=== PATIENT | female | born 1935 | race Caucasian/White ===

== ENCOUNTER 2022-01-02 08:45 | Emergency (ER) | payer MEDICARE ==
[2022-01-02 09:25] VITALS: RESP 14
[2022-01-02] MEDS ORDERED: SILVER NITRATE APPLICATOR 1 EACH STICK..EA. TOPICAL STA (10:17)
--- NOTE | 2022-01-02 10:19 | ED ---
General Adult HPI - General Chief complaint: ENT Stated complaint: Nose bleed Time Seen by Provider: 01/02/22 09:14 Source: patient, RN notes reviewed Mode of arrival: wheelchair Limitations: no limitations - History of Present Illness Initial comments: Patient is a pleasant 86-year-old female presenting to the emergency Department with epistaxis. Onset was yesterday. Patient was able to get a stopped and started again this morning. At this time seems to stopped again. Patient has no other complaints. Patient does have history of frequent nosebleeds, more when she was younger. Patient only takes aspirin occasionally, none recently. No other area of bleeding. No pain. Patient states her blood pressure frequently runs high when she sees a doctor secondary to white coat syndrome. - Related Data Home Medications Medication Instructions Recorded Confirmed Cholecalciferol [Vitamin D3 (25 25 mcg PO DAILY 01/02/22 01/02/22 Mcg = 1000 Iu)] Multivitamins, Thera [Multivitamin 1 tab PO DAILY 01/02/22 01/02/22 (formulary)] Turmeric Root Extract [Turmeric] 500 mg PO DAILY 01/02/22 01/02/22 Vits A,C,E/Lutein/Minerals 1 tab PO DAILY 01/02/22 01/02/22 [Ocuvite with Lutein Tablet] Previous Rx's Medication Instructions Recorded amLODIPine [Norvasc] 5 mg PO DAILY #7 tab 01/02/22 Allergies Allergy/AdvReac Type Severity Reaction Status Date / Time No Known Allergies Allergy Verified 01/02/22 09:54 Review of Systems ROS Statement: Those systems with pertinent positive or pertinent negative responses have been documented in the HPI. ROS Other: All systems not noted in ROS Statement are negative. Constitutional: Denies: fever Eyes: Denies: eye pain ENT: Reports: epistaxis. Denies: ear pain Respiratory: Denies: cough Cardiovascular: Denies: chest pain Endocrine: Denies: fatigue Gastrointestinal: Denies: abdominal pain Genitourinary: Denies: dysuria Musculoskeletal: Denies: back pain Skin: Denies: rash Neurological: Denies: weakness Past Medical History Past Medical History: No Reported History History of Any Multi-Drug Resistant Organisms: None Reported Past Surgical History: Cholecystectomy, Hysterectomy Past Psychological History: No Psychological Hx Reported Smoking Status: Never smoker Past Alcohol Use History: Rare Past Drug Use History: None Reported General Exam Limitations: no limitations General appearance: alert, in no apparent distress Head exam: Present: normocephalic Eye exam: Present: normal appearance, PERRL ENT exam: Present: normal oropharynx, other (Right anterior nares with fresh clot) Neck exam: Present: normal inspection Respiratory exam: Present: normal lung sounds bilaterally Cardiovascular Exam: Present: regular rate, normal rhythm Expanded Peripheral pulses: 2+: Radial (R), Radial (L) GI/Abdominal exam: Present: soft. Absent: tenderness Extremities exam: Present: normal inspection. Absent: pedal edema, calf tenderness Neurological exam: Present: alert. Absent: motor sensory deficit Psychiatric exam: Present: normal affect, normal mood Skin exam: Present: normal color Course Vital Signs 01/02/22 01/02/22 01/02/22 08:51 09:17 11:27 Temperature 97.8 F 97 F L 97.3 F L Pulse Rate 88 78 80 Respiratory 18 14 14 Rate Blood Pressure 240/111 247/104 223/89 O2 Sat by Pulse 96 97 94 L Oximetry 01/02/22 01/02/22 12:34 13:22 Temperature 97.5 F L Pulse Rate 93 87 Respiratory 14 Rate Blood Pressure 216/97 195/89 O2 Sat by Pulse 95 Oximetry - Reevaluation(s) Reevaluation #1: 01/02/22 10:18 Patient recommended further evaluation and control of blood pressure EKG Findings - EKG Comments: EKG Findings:: No sinus rhythm with rate of 86. NE 144. QRS 132. QT 400. QTc 470. Right axis. Right bundle branch block. Borderline inferior Q waves. Procedures - Procedures Initial comment: Verbal informed consent given. Epistaxis: Area of fresh bleeding right nares cauterized with silver nitrate. No complications. Medical Decision Making - Medical Decision Making Patient reevaluated. Blood pressure 189/95. Patient was given small dose of Norvasc prior to discharge and recommended close follow-up with repeat blood pressure monitoring. - Lab Data Result diagrams: 01/02/22 10:56 01/02/22 10:56 Lab Results 01/02/22 01/02/22 Range/Units 10:56 10:56 WBC 10.8 H (3.8-10.6) k/uL RBC 5.37 (3.80-5.40) m/uL Hgb 14.2 (11.4-16.0) gm/dL Hct 44.1 (34.0-46.0) % MCV 82.1 (80.0-100.0) fL MCH 26.4 (25.0-35.0) pg MCHC 32.2 (31.0-37.0) g/dL RDW 15.2 (11.5-15.5) % Plt Count 211 (150-450) k/uL MPV 9.4 Neutrophils % 84 % Lymphocytes % 9 % Monocytes % 3 % Eosinophils % 1 % Basophils % 0 % Neutrophils # 9.0 H (1.3-7.7) k/uL Lymphocytes # 1.0 (1.0-4.8) k/uL Monocytes # 0.4 (0-1.0) k/uL Eosinophils # 0.2 (0-0.7) k/uL Basophils # 0.0 (0-0.2) k/uL Hypochromasia Slight Sodium 142 (137-145) mmol/L Potassium 4.2 (3.5-5.1) mmol/L Chloride 109 H (98-107) mmol/L Carbon Dioxide 26 (22-30) mmol/L Anion Gap 7 mmol/L BUN 17 (7-17) mg/dL Creatinine 0.55 (0.52-1.04) mg/dL Est GFR (CKD-EPI)AfAm >90 (>60 ml/min/1.73 sqM) Est GFR (CKD-EPI)NonAf 85 (>60 ml/min/1.73 sqM) Glucose 110 H (74-99) mg/dL Calcium 9.3 (8.4-10.2) mg/dL Total Bilirubin 0.5 (0.2-1.3) mg/dL AST 23 (14-36) U/L ALT 14 (4-34) U/L Alkaline Phosphatase 110 (38-126) U/L Total Protein 7.5 (6.3-8.2) g/dL Albumin 4.1 (3.5-5.0) g/dL - Radiology Data Radiology results: image reviewed (Chest x-ray shows COPD changes. Some atelectasis.) Disposition Clinical Impression: Epistaxis, Hypertension Disposition: HOME SELF-CARE Condition: Stable Instructions (If sedation given, give patient instructions): Nosebleed (ED), Hypertension (ED) Additional Instructions: Prescription sent to pharmacy for blood pressure medication. Please do follow- up with primary care physician in the next couple days for recheck. Return for bleeding, uncontrolled blood pressure, worsening or changing symptoms or other concerns. If nasal bleeding recurs, apply nasal clamp for 10 minutes. Prescriptions: amLODIPine [Norvasc] 5 mg PO DAILY #7 tab Is patient prescribed a controlled substance at d/c from ED?: No Referrals: Ray Bolden MD [STAFF PHYSICIAN] - 1-2 days Time of Disposition: 14:23
[2022-01-02] MEDS ORDERED: hydrALAZINE HCL 20 MG/ML 1 ML VIAL IVP STA ×2 (10:52→12:41)
[2022-01-02 11:06] LABS: Basophils % (A) 0 %; Eosinophils # (A) 0.2 k/uL (0-0.7); Eosinophils % (A) 1 %; HCT 44.1 % (34.0-46.0); HGB 14.2 gm/dL (11.4-16.0); Hypochromasia Slight; Lymphocytes % (A) 9 %; MCH 26.4 pg (25.0-35.0); MCHC 32.2 g/dL (31.0-37.0); MCV 82.1 fL (80.0-100.0); Mean Platelet Volume 9.4; Monocytes # (A) 0.4 k/uL (0-1.0); Monocytes % (A) 3 %; Neutrophils % (A) 84 %; Platelet Count 211 k/uL (150-450); RBC 5.37 m/uL (3.80-5.40); RDW 15.2 % (11.5-15.5); WBC 10.8 k/uL (3.8-10.6)
[2022-01-02 11:18] LABS: ALT 14 U/L (4-34); AST 23 U/L (14-36); African American GFR (CKD) >90 (>60 ml/min/1.73 sqM); Albumin 4.1 g/dL (3.5-5.0); Alkaline Phosphatase 110 U/L (38-126); Anion Gap 7 mmol/L; Blood Urea Nitrogen 17 mg/dL (7-17); Calcium 9.3 mg/dL (8.4-10.2); Carbon Dioxide 26 mmol/L (22-30); Chloride 109 mmol/L (98-107); Glucose 110 mg/dL (74-99); Non-African American GFR(CKD) 85 (>60 ml/min/1.73 sqM); Potassium 4.2 mmol/L (3.5-5.1); Sodium 142 mmol/L (137-145); Total Bilirubin 0.5 mg/dL (0.2-1.3); Total Protein 7.5 g/dL (6.3-8.2)
[2022-01-02 12:38] VITALS: TEMP 97.5
--- NOTE | 2022-01-02 12:39 | XR ---
EXAMINATION TYPE: XR chest 2V DATE OF EXAM: 01/02/2022 COMPARISON: 09/28/2017 HISTORY: 86-year-old female with weakness TECHNIQUE: PA and lateral views FINDINGS: Heart limits of normal in size. Atherosclerotic calcifications throughout the thoracic aorta, greates t at the aortic arch. Hyperinflation. Some stringy areas of atelectasis mid and lower lungs. No conso lidation or pleural effusion. IMPRESSION: COPD. Some strandy areas of atelectasis. No acute process seen.
[2022-01-02] MEDS ORDERED: amLODIPine 5 MG TAB PO STA (14:22)
[2022-01-02 14:49] VITALS: BP 139/55; PULSE 76
== END 2022-01-02 15:18 | disposition home or self-care (01) ==
LOC: EC 08:45
DX: R04.0 Epistaxis (principal); I10 Essential (primary) hypertension
CPT/HCPCS: 93005; 80053; 85025; 71046; 30901; 99284; 96374; 96376; J0360

== ENCOUNTER 2024-03-19 19:52 | Emergency (ER) | payer MEDICARE ==
[2024-03-19 20:48] VITALS: RESP 16
[2024-03-19] MEDS: SODIUM CHLORIDE 0.9% 1,000 ML IV STA (22:43)
[2024-03-19 22:58] LABS: Basophils # (A) 0.1 k/uL (0-0.2); Basophils % (A) 0 %; Eosinophils # (A) 0.2 k/uL (0-0.7); Eosinophils % (A) 1 %; HCT 38.5 % (34.0-46.0); HGB 12.1 gm/dL (11.4-16.0); Lymphocytes # (A) 1.1 k/uL (1.0-4.8); Lymphocytes % (A) 5 %; MCH 26.3 pg (25.0-35.0); MCHC 31.3 g/dL (31.0-37.0); Mean Platelet Volume 9.1; Monocytes # (A) 0.9 k/uL (0-1.0); Monocytes % (A) 4 %; Neutrophils # (A) 20.2 k/uL (1.3-7.7); Neutrophils % (A) 89 %; Platelet Count 228 k/uL (150-450); RBC 4.58 m/uL (3.80-5.40); RDW 14.5 % (11.5-15.5); WBC 22.8 k/uL (3.8-10.6)
--- NOTE | 2024-03-19 22:58 | XR ---
EXAM: XR chest 1V portable CLINICAL INDICATION:Female, 88 years old with history of hip fx; [facility] COMPARISON: None. TECHNIQUE: Chest single view. FINDINGS: Large ovoid relatively opaque structure, likely breast implant projecting over the left lung somewhat limits evaluation. There is an edge projected over the right upper lung with lung markings seen lian pheral to this. Lines/tubes/devices: None. Cardiomediastinum: Cardiac silhouette appears moderately enlarged. Tortuous and moderately calcified aorta. Vasculature: No increased pulmonary vasculature. Lungs/pleura: Diffuse interstitial coarsening and senescent changes. No acute superimposed airspace disease, sizabl e effusion, or evidence of pneumothorax. Bones/soft tissues: Bony thorax appears grossly intact as seen, with moderate degenerative changes of the spine and shoul ders.. Regional soft tissues appear unremarkable. IMPRESSION: Moderate cardiomegaly and chronic pulmonary changes. No acute cardiopulmonary findings.
[2024-03-19 23:01] LABS: Appearance,Urine Clear (Clear); Bilirubin,Urine Negative (Negative); Blood,Urine Negative (Negative); Color,Urine Colorless; Glucose,Urine (UA) Negative (Negative); Ketones,Urine Negative (Negative); Leukocyte Esterase,Urine Negative (Negative); Nitrite,Urine Negative (Negative); Protein,Urine Trace (Negative); Specific Gravity,Urine 1.016 (1.001-1.035); Urobilinogen,Urine <2.0 mg/dL (<2.0)
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
[2024-03-19] MEDS: MORPHINE SULFATE 4 MG/ML SYRINGE IV STA (23:04)
[2024-03-19] MEDS: LABETALOL 5 MG/ML VIAL MDV IVP STA (23:06)
[2024-03-19 23:07] LABS: ALT 18 U/L (4-34); AST 27 U/L (14-36); African American GFR (CKD) >90 (>60 ml/min/1.73 sqM); Albumin 3.9 g/dL (3.5-5.0); Alkaline Phosphatase 141 U/L (38-126); Anion Gap 6 mmol/L; Blood Urea Nitrogen 22 mg/dL (7-17); Calcium 9.3 mg/dL (8.4-10.2); Carbon Dioxide 24 mmol/L (22-30); Chloride 107 mmol/L (98-107); Glucose 125 mg/dL (74-99); Non-African American GFR(CKD) 87 (>60 ml/min/1.73 sqM); Potassium 4.4 mmol/L (3.5-5.1); Sodium 137 mmol/L (137-145); Total Bilirubin 0.4 mg/dL (0.2-1.3)
--- NOTE | 2024-03-19 23:07 | XR ---
EXAMINATION TYPE: XR Hip Complete LT DATE OF EXAM: 03/19/2024 9:00 PM CLINICAL INDICATION:Female, 88 years old with history of fall/pain; [facility] COMPARISON: X-rays 01/16/2023 TECHNIQUE: FINDINGS: Frontal and lateral views of the left hip. Bones appears somewhat demineralized. Left hip arthroplast y redemonstrated, appears intact and normally positioned. There is an acute oblique fracture of the f emur which extends through the proximal femoral shaft but there may be some involvement of the greate r trochanter. The major proximal bony fragment appears displaced slightly medially in relation to the distal shaft fragment, by about 3 mm. There is also some perihardware lucency along the medial aspec t of the intramedullary stem, likely reflecting loosening. Moderate arterial vascular calcifications are seen. No gross acute soft tissue abnormality. IMPRESSION: * Left hip arthroplasty redemonstrated, appears intact and normally positioned. * Acute oblique perihardware fracture of the proximal femur, which extends through the proximal femo ral shaft but there may be some involvement of the greater trochanter. * Major proximal bony fragment is displaced slightly medially and there is some perihardware lucency along the medial aspect of the intramedullary stem, likely reflecting loosening.
[2024-03-19 23:08] LABS: Partial Thromboplastin Time 26.2 sec (22.0-30.0); Prothrombin Time 10.9 sec (10.0-12.5)
--- NOTE | 2024-03-19 23:14 | XR ---
EXAMINATION TYPE: XR shoulder complete LT DATE OF EXAM: 03/19/2024 9:00 PM CLINICAL INDICATION:Female, 88 years old with history of fall/pain; [facility] COMPARISON: None TECHNIQUE: XR shoulder complete LT; shoulder was examined in AP, internally rotated and scapular Y p rojections. FINDINGS: Moderate hypertrophic degenerative change of the acromioclavicular joint with preserved alignment. Th ere appears to be a small subacromial spur. Mild/moderate degenerative change of the glenohumeral adelina nt involving the proximal humerus without evidence of dislocation. There is an acute proximal humerus fracture involving the greater tuberosity which appears displaced slightly superiorly and laterally. Mild soft tissue swelling about the shoulder. No radiopaque foreign body is seen. IMPRESSION: 1. Acute proximal left humerus fracture involving the greater tuberosity, which appears displaced sl ightly. 2. Degenerative changes of the AC and GH joints. 3. No dislocation.
[2024-03-20 01:01] VITALS: BP 205/98; PULSE 71; TEMP 97.8
== END 2024-03-20 01:35 | disposition other institution (70) ==
LOC: EC 19:52
DX: S72.002A Fracture of unspecified part of neck of left femur, initial encounter for closed fracture (principal); S42.252A Displaced fracture of greater tuberosity of left humerus, initial encounter for closed fracture; Z87.891 Personal history of nicotine dependence; W51.XXXA Accidental striking against or bumped into by another person, initial encounter
CPT/HCPCS: 36415; 80053; 85025; 85610; 85730; 81003; 73030; 73502; 71045; 99285; 96374; 96375; 96361 ×3; J2270; J1920

== ENCOUNTER 2025-03-26 10:22 | Emergency (ER) | payer MEDICARE ==
[2025-03-26 10:31] VITALS: TEMP 97.9
--- NOTE | 2025-03-26 10:52 | ED ---
General Adult HPI - General Chief complaint: Dizziness Stated complaint: Lightheadedness Time Seen by Provider: 03/26/25 10:25 Source: patient, RN notes reviewed Mode of arrival: EMS Limitations: no limitations - History of Present Illness Initial comments: Patient is an 89-year-old female presents emergency department with concern with lightheadedness. Onset of symptoms was prior to arrival. Patient states symptoms have resolved and is back to normal. Unclear if history of similar symptoms previously. Patient has a very hard time describing her symptoms however agree that she did feel lightheaded. No spinning sensation. No pain. No chest pain. No dyspnea. No weakness. No confusion. Patient states that is normal for her not to know what year it is - Related Data Home Medications Medication Instructions Recorded Confirmed Multivitamins, Thera [Multivitamin 1 tab PO DAILY 01/02/22 03/26/25 (formulary)] Vits A,C,E/Lutein/Minerals 1 tab PO DAILY 01/02/22 03/26/25 [Ocuvite with Lutein Tablet] Losartan [Cozaar] 50 mg PO DAILY 03/26/25 03/26/25 amLODIPine [Norvasc] 5 mg PO DAILY 03/26/25 03/26/25 carvediloL [Coreg*] 12.5 mg PO BID 03/26/25 03/26/25 Previous Rx's Medication Instructions Recorded Apixaban [Eliquis] 2.5 mg PO BID tab 12/27/22 Allergies Allergy/AdvReac Type Severity Reaction Status Date / Time No Known Allergies Allergy Verified 03/26/25 12:43 Review of Systems ROS Statement: Those systems with pertinent positive or pertinent negative responses have been documented in the HPI. ROS Other: All systems not noted in ROS Statement are negative. Constitutional: Denies: fever Eyes: Denies: eye pain ENT: Denies: ear pain Respiratory: Denies: cough, dyspnea Cardiovascular: Denies: chest pain Endocrine: Denies: fatigue Gastrointestinal: Denies: abdominal pain Neurological: Denies: headache, weakness, confusion Past Medical History Past Medical History: Hypertension History of Any Multi-Drug Resistant Organisms: None Reported Past Surgical History: Cholecystectomy, Hysterectomy Additional Past Surgical History / Comment(s): (R)hip replacement 1974 Past Psychological History: No Psychological Hx Reported Smoking Status: Former smoker Past Alcohol Use History: Rare Past Drug Use History: None Reported General Exam Limitations: no limitations General appearance: alert, in no apparent distress Head exam: Present: atraumatic, normocephalic Eye exam: Present: normal appearance, PERRL, EOMI ENT exam: Present: normal oropharynx Neck exam: Present: normal inspection. Absent: tenderness, meningismus Respiratory exam: Present: normal lung sounds bilaterally Cardiovascular Exam: Present: regular rate, normal rhythm, normal heart sounds GI/Abdominal exam: Present: soft. Absent: tenderness Extremities exam: Present: normal inspection. Absent: pedal edema, calf tenderness Neurological exam: Present: alert, CN II-XII intact. Absent: motor sensory deficit Expanded Neurological exam: Present: protecting the airway Patient oriented to: Present: person, place. Absent: time Speech: Present: fluid speech Cranial nerves: EOM's Intact: Normal, Facial Sensation: Normal Sensory exam: Upper Extremity Light Touch: Normal, Lower Extremity Light Touch: Normal Motor strength exam: RUE: 5, LUE: 5, RLE: 5, LLE: 5 Eye Response: (4) open spontaneously Motor Response: (6) obeys commands Verbal Response: (5) oriented Psychiatric exam: Present: normal affect, normal mood Skin exam: Present: normal color Course Vital Signs 03/26/25 03/26/25 03/26/25 10:27 10:31 11:16 Temperature 97.9 F Pulse Rate 63 71 67 Respiratory 16 16 18 Rate Blood Pressure 162/77 162/77 175/75 O2 Sat by Pulse 98 96 96 Oximetry 03/26/25 12:00 Temperature Pulse Rate 69 Respiratory 16 Rate Blood Pressure 185/72 O2 Sat by Pulse 97 Oximetry EKG Findings - EKG Results: EKG: interpreted by ERMD (Right bundle branch block), sinus rhythm, normal axis, normal ST/T Medical Decision Making - Medical Decision Making Was pt. sent in by a medical professional or institution (, PA, CAREER PLACEMENT SERVICES COUNSELOR, urgent care, hospital, or residential...) When possible be specific @ -No Did you speak to anyone other than the patient for history (EMS, parent, family, police, friend...)? What history was obtained from this source @ -No Did you review nursing and triage notes (agree or disagree)? Why? @ -I reviewed and agree with nursing and triage notes Were old charts reviewed (outside hosp., previous admission, EMS record, old EKG, old radiological studies, urgent care reports/EKG's, residential records)? Report findings @ -No old charts were reviewed Differential Diagnosis (chest pain, altered mental status, abdominal pain women, abdominal pain men, vaginal bleeding, weakness, fever, dyspnea, syncope, headache, dizziness, GI bleed, back pain, seizure, CVA, palpatations, mental health, musculoskeletal)? @ -Differential Dizziness: Benign paroxysmal positional Vertigo, Meniere's disease, otitis media, acoustic neuroma, vertebrobasilar insufficiency, cerebellar stroke, encephalitis, hypovolemic, arrhythmia, coronary artery syndrome, anemia, this is not meant to be an all-inclusive list EKG interpreted by me (3pts min.). @ -As above X-rays interpreted by me (1pt min.). @ -Chest x-ray shows no acute process CT interpreted by me (1pt min.). @ -CT scan of brain without acute abnormality U/S interpreted by me (1pt. min.). @ -None done What testing was considered but not performed or refused? (CT, X-rays, U/S, labs)? Why? @ -None What meds were considered but not given or refused? Why? @ -None Did you discuss the management of the patient with other professionals (professionals i.e. , PA, CAREER PLACEMENT SERVICES COUNSELOR, lab, RT, psych nurse, social media project manager, telegraph office telephone clerk, teacher, tactical deception plans officer, showcase maker)? Give summary @ -No Was smoking cessation discussed for >3mins.? @ -No Was critical care preformed (if so, how long)? @ -No Were there social determinants of health that impacted care today? How? (Homelessness, low income, unemployed, alcoholism, drug addiction, transportation, low edu. Level, literacy, decrease access to med. care, long term, rehab)? @ -No Was there de-escalation of care discussed even if they declined (Discuss DNR or withdrawal of care, Hospice)? DNR status @ -No What co-morbidities impacted this encounter? (DM, HTN, Smoking, COPD, CAD, Cancer, CVA, ARF, Chemo, Hep., AIDS, mental health diagnosis, sleep apnea, morbid obesity)? @ -None Was patient admitted / discharged? Hospital course, mention meds given and route, prescriptions, significant lab abnormalities, going to OR and other pertinent info. @ -Patient presents with lightheadedness, no other complaints. Patient reevaluated. Patient still remained symptom-free at this time. Patient updated on results and need for follow-up Undiagnosed new problem with uncertain prognosis? @ -No Drug Therapy requiring intensive monitoring for toxicity (Heparin, Nitro, Insulin, Cardizem)? @ -No Were any procedures done? @ -No Diagnosis/symptom? @ -Lightheadedness Acute, or Chronic, or Acute on Chronic? @ -Acute Uncomplicated (without systemic symptoms) or Complicated (systemic symptoms)? @ -Default Side effects of treatment? @ -No Exacerbation, Progression, or Severe Exacerbation? @ -No Poses a threat to life or bodily function? How? (Chest pain, [place], [place], pneumonia, PE, COPD, DKA, ARF, appy, cholecystitis, CVA, Diverticulitis, Homicidal, Suicidal, threat to staff... and all critical care pts) @ -No - Lab Data Result diagrams: 03/26/25 10:49 03/26/25 10:49 Lab Results 03/26/25 03/26/25 03/26/25 Range/Units 10:49 10:49 10:49 WBC 12.70 H (4.50-10.00) 10*3/uL RBC 4.63 (4.10-5.20) 10*6/uL Hgb 11.9 L (12.0-15.0) g/dL Hct 37.8 (37.2-46.3) % MCV 81.6 (80.0-97.0) fL MCH 25.7 L (27.0-32.0) pg MCHC 31.5 L (32.0-37.0) g/dL Plt Count 245 (140-440) 10*3/uL MPV 10.9 (9.5-12.2) fL Immature Gran % (Auto) 0.3 % Neutrophils % 85.0 % Lymphocytes % 8.3 % Monocytes % 4.8 % Eosinophils % 1.3 % Basophils % 0.3 % Immature Gran # 0.04 (0.00-0.04) 10*3/uL Neutrophils # 10.79 H (1.80-7.70) 10*3/uL Lymphocytes # 1.05 (0.90-5.00) 10*3/uL Monocytes # 0.61 (0.20-1.00) 10*3/uL Eosinophils # 0.17 (0.04-0.35) 10*3/uL Basophils # 0.04 (0.00-0.10) 10*3/uL PT 11.1 (10.0-12.5) sec INR 1.0 (<1.2) APTT 22.6 (22.0-30.0) sec Sodium 139 (137-145) mmol/L Potassium 4.6 (3.5-5.1) mmol/L Chloride 107 (98-107) mmol/L Carbon Dioxide 23 (22-30) mmol/L Anion Gap 9 mmol/L BUN 19 H (7-17) mg/dL Creatinine 0.64 (0.52-1.04) mg/dL Est GFR (CKD-EPI)AfAm >90 (>60 ml/min/1.73 sqM) Est GFR (CKD-EPI)NonAf 79 (>60 ml/min/1.73 sqM) Glucose 120 H (74-99) mg/dL Plasma Lactic Acid Isma (0.7-2.0) mmol/L Calcium 9.0 (8.4-10.2) mg/dL Magnesium 2.0 (1.6-2.3) mg/dL Total Bilirubin 0.6 (0.2-1.3) mg/dL AST 21 (14-36) U/L ALT 11 (4-34) U/L Alkaline Phosphatase 92 (38-126) U/L Troponin I (0.000-0.034) ng/mL Total Protein 6.9 (6.3-8.2) g/dL Albumin 3.9 (3.5-5.0) g/dL Urine Color Urine Appearance (Clear) Urine pH (5.0-8.0) Ur Specific [place] (1.001-1.035) Urine Protein (Negative) Urine Glucose (UA) (Negative) Urine Ketones (Negative) Urine Blood (Negative) Urine Nitrite (Negative) Urine Bilirubin (Negative) Urine Urobilinogen (<2.0) mg/dL Ur Leukocyte Esterase (Negative) 03/26/25 03/26/25 03/26/25 Range/Units 10:49 10:49 12:30 WBC (4.50-10.00) 10*3/uL RBC (4.10-5.20) 10*6/uL Hgb (12.0-15.0) g/dL Hct (37.2-46.3) % MCV (80.0-97.0) fL MCH (27.0-32.0) pg MCHC (32.0-37.0) g/dL Plt Count (140-440) 10*3/uL MPV (9.5-12.2) fL Immature Gran % (Auto) % Neutrophils % % Lymphocytes % % Monocytes % % Eosinophils % % Basophils % % Immature Gran # (0.00-0.04) 10*3/uL Neutrophils # (1.80-7.70) 10*3/uL Lymphocytes # (0.90-5.00) 10*3/uL Monocytes # (0.20-1.00) 10*3/uL Eosinophils # (0.04-0.35) 10*3/uL Basophils # (0.00-0.10) 10*3/uL PT (10.0-12.5) sec INR (<1.2) APTT (22.0-30.0) sec Sodium (137-145) mmol/L Potassium (3.5-5.1) mmol/L Chloride (98-107) mmol/L Carbon Dioxide (22-30) mmol/L Anion Gap mmol/L BUN (7-17) mg/dL Creatinine (0.52-1.04) mg/dL Est GFR (CKD-EPI)AfAm (>60 ml/min/1.73 sqM) Est GFR (CKD-EPI)NonAf (>60 ml/min/1.73 sqM) Glucose (74-99) mg/dL Plasma Lactic Acid Isma 1.0 (0.7-2.0) mmol/L Calcium (8.4-10.2) mg/dL Magnesium (1.6-2.3) mg/dL Total Bilirubin (0.2-1.3) mg/dL AST (14-36) U/L ALT (4-34) U/L Alkaline Phosphatase (38-126) U/L Troponin I 0.017 (0.000-0.034) ng/mL Total Protein (6.3-8.2) g/dL Albumin (3.5-5.0) g/dL Urine Color Colorless Urine Appearance Clear (Clear) Urine pH 7.0 (5.0-8.0) Ur Specific [place] 1.011 (1.001-1.035) Urine Protein Negative (Negative) Urine Glucose (UA) Negative (Negative) Urine Ketones Negative (Negative) Urine Blood Negative (Negative) Urine Nitrite Negative (Negative) Urine Bilirubin Negative (Negative) Urine Urobilinogen <2.0 (<2.0) mg/dL Ur Leukocyte Esterase Negative (Negative) Disposition Clinical Impression: Lightheadedness Disposition: HOME SELF-CARE Condition: Stable Instructions (If sedation given, give patient instructions): Dizziness (ED) Additional Instructions: Please do follow-up with your primary care physician in the next 1 or 2 days for recheck. Return for pain, difficulty breathing, confusion, dizziness, worsening or changing symptoms or other concerns. Is patient prescribed a controlled substance at d/c from ED?: No Referrals: Hamilton Allen MD [Primary Care Provider] - 1-2 days Time of Disposition: 13:57
[2025-03-26] MEDS: SODIUM CHLORIDE 0.9% 1,000 ML IV SCH (11:00)
[2025-03-26 11:50] LABS: Basophils # (A) 0.04 10*3/uL (0.00-0.10); Basophils % (A) 0.3 %; Eosinophils # (A) 0.17 10*3/uL (0.04-0.35); Eosinophils % (A) 1.3 %; HCT 37.8 % (37.2-46.3); HGB 11.9 g/dL (12.0-15.0); Lymphocytes # (A) 1.05 10*3/uL (0.90-5.00); Lymphocytes % (A) 8.3 %; MCH 25.7 pg (27.0-32.0); MCHC 31.5 g/dL (32.0-37.0); MCV 81.6 fL (80.0-97.0); Mean Platelet Volume 10.9 fL (9.5-12.2); Monocytes # (A) 0.61 10*3/uL (0.20-1.00); Monocytes % (A) 4.8 %; Neutrophils # (A) 10.79 10*3/uL (1.80-7.70); Platelet Count 245 10*3/uL (140-440); RBC 4.63 10*6/uL (4.10-5.20); RDW 15.7 % (11.5-14.5)
[2025-03-26 12:04] LABS: ALT 11 U/L (4-34); AST 21 U/L (14-36); African American GFR (CKD) >90 (>60 ml/min/1.73 sqM); Albumin 3.9 g/dL (3.5-5.0); Alkaline Phosphatase 92 U/L (38-126); Anion Gap 9 mmol/L; Blood Urea Nitrogen 19 mg/dL (7-17); Carbon Dioxide 23 mmol/L (22-30); Chloride 107 mmol/L (98-107); Glucose 120 mg/dL (74-99); Non-African American GFR(CKD) 79 (>60 ml/min/1.73 sqM); Potassium 4.6 mmol/L (3.5-5.1); Sodium 139 mmol/L (137-145); Total Bilirubin 0.6 mg/dL (0.2-1.3); Total Protein 6.9 g/dL (6.3-8.2)
[2025-03-26 12:08] LABS: Partial Thromboplastin Time 22.6 sec (22.0-30.0); Prothrombin Time 11.1 sec (10.0-12.5)
--- NOTE | 2025-03-26 12:17 | CT ---
EXAMINATION TYPE: CT brain wo con DATE OF EXAM: 03/26/2025 11:58 AM COMPARISON: 09/28/2017 CLINICAL INDICATION: Female, 89 years old with history of weakness, Weakness, TECHNIQUE: Examination was done in axial plane without intravenous contrast. Coronal and sagittal r econstructions performed. CT DLP: 1066.4 mGycm, Automated exposure control for dose reduction was used. FINDINGS: There is no evidence of acute intracranial hemorrhage, acute ischemic changes, mass, mass-effect, or extra-axial fluid collection. There is no effacement of cerebral sulci or basal subarachnoid cister ns. There is similar mild hydrocephalus with David's ratio calculated at 0.31. There is no midline alex ft. [place]-white matter distinction is preserved. There is moderate to severe confluent white matter hypodensity in both cerebral hemispheres that appe ars to have progressed from 2017. Benign bilateral basal ganglionic calcifications are present. Ather osclerotic calcifications in the carotid siphons. There is mucosal thickening anterior ethmoid air cells. Mastoid air cells are pneumatized. Orbits and globes are intact. IMPRESSION: 1. 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 Correlate to exclude a component of NPH. 2. Moderate to severe confluence burden of chronic small vessel ischemic disease, progressed from 201 7. 3. Otherwise, no acute intracranial abnormality seen. [facility], , 03/26/2025 12:15 PM
--- NOTE | 2025-03-26 12:24 | XR ---
EXAMINATION TYPE: XR chest 2V DATE OF EXAM: 03/26/2025 12:06 PM COMPARISON: 03/19/2024 CLINICAL INDICATION: Female, 89 years old with history of Weakness, , TECHNIQUE: AP and lateral views FINDINGS: Heart normal size. Prominent hazy densities relating to overlying soft tissue and left breast implant . Atherosclerotic calcification throughout the thoracic aorta. No blanca consolidation or pleural effu soni identified. Mild hyperinflation. IMPRESSION: Possible underlying COPD. Limitation due to overlying soft tissue and left breast implant. No definit e acute process. [facility], Workstation: [facility], 03/26/2025 12:22 PM
[2025-03-26 12:27] VITALS: RESP 16
[2025-03-26 12:47] LABS: Appearance,Urine Clear (Clear); Bilirubin,Urine Negative (Negative); Blood,Urine Negative (Negative); Color,Urine Colorless; Glucose,Urine (UA) Negative (Negative); Ketones,Urine Negative (Negative); Leukocyte Esterase,Urine Negative (Negative); Nitrite,Urine Negative (Negative); Protein,Urine Negative (Negative); Specific Gravity,Urine 1.011 (1.001-1.035); Urobilinogen,Urine <2.0 mg/dL (<2.0)
[2025-03-26 14:04] VITALS: BP 130/89; PULSE 65
== END 2025-03-26 14:08 | disposition home or self-care (01) ==
LOC: EC 10:22
DX: R42 Dizziness and giddiness (principal); I45.10 Unspecified right bundle-branch block; Z87.891 Personal history of nicotine dependence
CPT/HCPCS: 36415; 70450; 71046; 80053; 81003; 83605; 83735; 84484; 85025; 85610; 85730; 93005; 96360; 96361; 99285